=== PATIENT | female | born 1970 | race Caucasian/White ===

== ENCOUNTER 2020-01-03 22:47 | Emergency (ER) | payer OTHER ==
[2020-01-03 23:09] VITALS: BMI 24.4
--- NOTE | 2020-01-03 23:53 | PDOC ---
History of Present Illness - General Chief Complaint: Pain Stated Complaint: PAIN Time Seen by Provider: 01/03/20 23:27 - History of Present Illness Initial Comments: 01/04/20 00:35 49 yo F no PMH presenting with L arm and L leg numbness. Y[place]ut speaking only. Reports that her numbness began acutely around 1400, "feels like they are asleep ", associated with bitemporal headache. Complains that both feet are experiencing this numbness. Also complains of intermittent mild chest pain for the past 4 days. Denies trauma or inciting event, has not happened before. Further denies photophobia/phonophobia, SOB, N/V, fevers/chills. Past History - Past Medical History Allergies/Adverse Reactions: Allergies Allergy/AdvReac Type Severity Reaction Status Date / Time No Known Allergies Allergy Verified 01/03/20 23:09 Home Medications: Ambulatory Orders NK [No Known Home Medication] 01/04/20 COPD: No - Psycho Social/Smoking Cessation Hx Smoking History: Current every day smoker Have you smoked in the past 12 months: Yes Number of Cigarettes Smoked Daily: 6 Information on smoking cessation initiated: No Hx Alcohol Use: No Drug/Substance Use Hx: No Review of Systems - Review of Systems Comments:: 01/04/20 00:59 GENERAL/CONSTITUTIONAL: denies fever, chills, diaphoresis, generalized weakness , malaise, loss of appetite, weight change HEAD, EYES, EARS, NOSE AND THROAT: denies rhinorrhea, nasal congestion, throat pain, throat swelling, difficulty swallowing, mouth swelling, ear pain, eye pain , visual changes NEUROLOGIC: endorses bitemporal headache and L arm/leg/bilateral feet numbness "like her feet are asleep", as well as dizziness. Denies focal weakness unsteady gait, seizure, mental status changes, bladder or bowel incontinence CARDIOVASCULAR: endorses intermittent chest pain, not currently experiencing. Denies syncope, palpitations, irregular heart rate, lightheadedness, peripheral edema RESPIRATORY: denies cough, shortness of breath, dyspnea with exertion, orthopnea , wheezing, stridor, hemoptysis GASTROINTESTINAL: denies abdominal pain, abdominal distension, nausea, vomiting , diarrhea, constipation, melena, hematochezia GENITOURINARY: denies dysuria, frequency, urgency, hesitancy, hematuria, flank pain, genital pain MUSCULOSKELETAL: denies myalgia, arthralgia, joint swelling, back pain, neck pain SKIN: denies rash, itching, pallor HEMATOLOGIC/IMMUNOLOGIC: denies easy bleeding, easy bruising, lymphadenopathy, frequent infections ENDOCRINE: denies unexplained weight gain, unexplained weight loss, heat intolerance, cold intolerance PSYCHIATRIC: denies anxiety, depression, suicidal or homicidal ideation, hallucinations. *Physical Exam - Vital Signs Last Vital Signs Temp Pulse Resp BP Pulse Ox 98.0 F 64 18 132/83 96 01/03/20 23:04 01/03/20 23:23 01/03/20 23:23 01/03/20 23:23 01/03/20 23:23 - Physical Exam 01/04/20 01:00 GENERAL: Awake, alert, and fully oriented, appears uncomfortable. HEAD: Normal with no signs of trauma. EYES: Pupils equal, round and reactive to light, extraocular movements intact, sclera anicteric, conjunctiva clear. No lid lag. EARS, NOSE, THROAT: Ears normal, nares patent, oropharynx clear without exudates. NECK: Normal range of motion, supple without lymphadenopathy, JVD, or masses. LUNGS: Breath sounds equal, clear to auscultation bilaterally. No wheezes, and no crackles. No accessory muscle use. HEART: Regular rate and rhythm, normal S1 and S2 without murmur, rub or gallop. ABDOMEN: Soft, nontender, non-distended, normoactive bowel sounds, negative guarding, negative rebound, no masses. MUSCULOSKELETAL: Normal range of motion at all joints. No bony deformities or tenderness. No CVA tenderness. UPPER EXTREMITIES: 2+ pulses, warm, well-perfused. No cyanosis. No clubbing. Cap refill <2 seconds. No peripheral edema. LOWER EXTREMITIES: 2+ pulses, warm, well-perfused. No calf tenderness. No peripheral edema. NEUROLOGICAL: Cranial nerves II-XII intact. Normal speech. Normal gait. Negative Tinel's. Subjective decreased sensation to light touch throughout entire L arm and L leg, as well as R foot. Point tenderness at insertion of trapezius. PSYCHIATRIC: Cooperative. Good eye contact. Appropriate mood and affect. SKIN: Warm, dry, normal turgor, no rashes or lesions noted. ED Treatment Course - LABORATORY CBC & Chemistry Diagram: 01/04/20 00:30 01/04/20 02:00 - RADIOLOGY Radiology Studies Ordered: Category Date Time Status HEAD CT WITHOUT CONTRAST [CT] Stat CT Scan 01/03/20 23:40 Ordered CHEST X-RAY PORTABLE* [RAD] Stat Radiology 01/03/20 23:42 Ordered Medical Decision Making - Medical Decision Making 01/03/20 23:53 Patient with tightness at insertion of trapezius, bitemporal headache, subjective numbness without a specific distribution. Concern for intracranial pathology vs tension headache. - CT head negative - CBC, CMP, EKG, trop - Ofirmev, fluids, Reglan - reassess - likely dc 01/03/20 23:53 EKG normal sinus at 69 bpm. Repeat EKG sinus bradycardia at 58 bpm. 01/04/20 01:34 Patient reassessed, feels better. Numbness improved, headache improved. Will give some toradol and Robaxin as well. Discharge - Discharge Information Problems reviewed: Yes Clinical Impression/Diagnosis: Headache Disposition: HOME - Follow up/Referral Referrals: [facility] [place] [facility] [place] [Provider Group] ON STAFF,NOT [Primary Care Provider] - - Patient Discharge Instructions Patient Printed Discharge Instructions: DI for Headache Additional Instructions: You were seen for the evaluation of your symptoms. You did well with the treatments and your labs were within normal limits. Please return to the emergency department if you have worsening or new concerning symptoms. Please follow up with the primary medical doctor within 1 week after discharge for follow up care and management. Thank you. - Post Discharge Activity
[2020-01-04] MEDS ORDERED: SODIUM CHLORIDE 0.9% 1000 ML INFUS.BAG IV ONE (00:26)
[2020-01-04] MEDS ORDERED: ACETAMINOPHEN 1000 MG/100 ML VIAL (NON FORMULARY) IVPB ONE (00:26)
[2020-01-04] MEDS ORDERED: METOCLOPRAMIDE HCL INJECTION 10 MG/2 ML VIAL IVPUSH ONE (00:26)
--- NOTE | 2020-01-04 00:35 | PDOC ---
Documentation entered by Carlos Eduardo Mcmillan SCRIBE, acting as scribe for Cnady Sanchez DO. Candy Sanchez DO: This documentation has been prepared by the Hipolito rivera Daniel, SCRIBE, under my direction and personally reviewed by me in its entirety. I confirm that the documentation accurately reflects all work, treatment, procedures, and medical decision making performed by me. Attending Attestation - Resident Resident Name: MinorErickcar - ED Attending Attestation I have performed the following: I have examined & evaluated the patient, The case was reviewed & discussed with the resident, I agree w/resident's findings & plan, Exceptions are as noted - HPI HPI: 01/03/20 23:59 The patient is a 49 year old female with no past medical history here today for evaluation of extremity numbness. The patient reports that she has had left arm and bilateral foot numbness since 2 PM today with associated left sided headache and neck pain. She also notes that she has had an episode of intermittent chest pressure that is a 7/10 in severity and lasts for a few minutes at a time today that has resolved. Patient denies headache, lightheadedness. Denies fever, chills. Denies shortness of breath. Denies nausea, vomiting, diarrhea, abdominal pain. Allergies: NKA - Physicial Exam PE: 01/04/20 00:29 Constitutional: Awake, alert, oriented. No acute distress. Head: Normocephalic. Atraumatic Eyes: PERRL. EOMI. Conjunctivae are not pale. ENT: Mucous membranes are moist and intact. Posterior pharynx without exudates or erythema. Uvula midline. Neck: Supple. Full ROM. No lymphadenopathy. Cardiovascular: Regular rate. Regular rhythm. S1, S2 regular. Distal pulses are 2+ and symmetric. Pulmonary/Chest: No evidence of respiratory distress. Clear to auscultation bilaterally No wheezing, rales or rhonchi. Abdominal: Soft and non-distended. There is no tenderness. No rebound, guarding or rigidity. No organomegaly. No palpable masses. Good bowel sounds. Back: No CVA tenderness. Musculoskeletal: +point tenderness at the insertion of the trapezius into the occiput. No edema. No cyanosis. No clubbing. Full range of motion in all extremities. Nocalf tenderness. Radial/pedal pulses are intact and 2+ bilaterally Skin: Skin is warm and dry. No petechiae. No purpura. Neurological: Alert and oriented to person, place, and time. Cranial nerves II -XII are grossly intact. Normal speech. Strength is grossly symmetric. No sensory deficits. Psychiatric: Good eye contact. Normal interaction, affect and behavior. - Medical Decision Making 01/04/20 00:33 a/p: 49yo female with L posterior occiput pain, L paraspinal pain and paresthesias to LUE and LLE -pt also with west -suspect complex migraine with paraspinal muscle spasms -head ct ordered for paresthesias -neuro intact, sensation intact, no focal deficits, pt with FROM of all extremities -will send labs, tylenol, reglan -will monitor and reassess 01/04/20 00:35 pt also with an episode of cp earlier today will obtain ekg and trop 01/04/20 01:[address] neg 01/04/20 01:34 pt with improvement of symptoms west improved but not gone will add toradol 01/04/20 01:35 cxr clear 01/04/20 02:04 pt labs pending pt signed out to the oncoming ED team pending labs and re-eval Heart Score/ECG Review - ECG Intrepretation Comment:: 01/04/20 00:35 sinus at 69, nl axis, nl interval, no acute st/t wave findings
[2020-01-04] MEDS ORDERED: METOCLOPRAMIDE HCL INJECTION 10 MG/2 ML VIAL ONE (00:42)
[2020-01-04] MEDS ORDERED: ACETAMINOPHEN INJECTION 100 ML IVPB ONE (00:42)
[2020-01-04] MEDS ORDERED: METHOCARBAMOL 500 MG TABLET PO ONE (01:34)
[2020-01-04] MEDS ORDERED: KETOROLAC TROMETHAMINE 30 MG/1 ML VIAL IVPUSH ONE (01:34)
[2020-01-04] MEDS ORDERED: METHOCARBAMOL 500 MG TABLET ONE (01:36)
[2020-01-04] MEDS ORDERED: KETOROLAC TROMETHAMINE 15 MG/ML VIAL ONE (01:37)
[2020-01-04 01:44] LABS: BASO % 0.8 % (0-2.0); EOS % 1.9 % (0-4.5); HEMATOCRIT 44.1 % (32.4-45.2); HEMOGLOBIN 15.4 GM/dL (10.7-15.3); LYMPH % 51.2 % (8-40); MCH 32.7 pg (25.7-33.7); MCHC 34.8 g/dl (32.0-36.0); MONO % 5.4 % (3.8-10.2); NEUT % 40.7 % (42.8-82.8); PLATELET COUNT 269 K/MM3 (134-434); RDW 13.2 % (11.6-15.6); WHITE BLOOD COUNT 6.1 K/mm3 (4.0-10.0)
[2020-01-04 02:05] LABS: INR 1.03 (0.83-1.09); PROTHROMBIN TIME (PATIENT) 12.1 SEC (9.7-13.0)
[2020-01-04 02:08] LABS: ACTIVATED PTT 29.2 SECONDS (25.2-36.5)
[2020-01-04 02:51] LABS: MAGNESIUM 1.9 mg/dL (1.8-2.4); PHOSPHOROUS 3.1 mg/dL (2.5-4.9)
[2020-01-04 02:55] LABS: ALBUMIN 3.3 g/dl (3.4-5.0); ALK PHOS 101 U/L (45-117); ANION GAP 5 MMOL/L (8-16); BILIRUBIN,TOTAL 0.5 mg/dL (0.2-1); BLOOD UREA NITROGEN 7.1 mg/dL (7-18); CALCIUM 8.4 mg/dL (8.5-10.1); CHLORIDE 113 mmol/L (98-107); CO2 25 mmol/L (21-32); CREATININE 0.6 mg/dL (0.55-1.3); GLUCOSE,RANDOM 106 mg/dL (74-106); POTASSIUM 3.9 mmol/L (3.5-5.1); SGOT/AST 15 U/L (15-37); SGPT/ALT 23 U/L (13-61); SODIUM 142 mmol/L (136-145); TOT PROT 6.2 g/dl (6.4-8.2)
--- NOTE | 2020-01-04 03:31 | PDOC ---
*Physical Exam - Vital Signs Last Vital Signs Temp Pulse Resp BP Pulse Ox 98.0 F 64 18 132/83 96 01/03/20 23:04 01/03/20 23:23 01/03/20 23:23 01/03/20 23:23 01/03/20 23:23 - Physical Exam Received sign out from day team Patient is a 49 yo F with no pmhx presenting to the emergency department with bilateral feet numbness with left arm and left leg numbness since 2 pm yesterday. Denies trauma At the time of sign out, the patient had pending labs and requiring re- assessment. ED Treatment Course - LABORATORY CBC & Chemistry Diagram: 01/04/20 00:30 01/04/20 02:00 - ADDITIONAL ORDERS Additional order review: Laboratory Results 01/04/20 01/04/20 01/04/20 02:15 02:00 02:00 PT with INR INR PTT (Actin FS) Sodium 142 Potassium 3.9 Chloride 113 H Carbon Dioxide 25 Anion Gap 5 L BUN 7.1 Creatinine 0.6 Est GFR (CKD-EPI)AfAm 124.92 Est GFR (CKD-EPI)NonAf 107.78 Random Glucose 106 Calcium 8.4 L Phosphorus 3.1 Magnesium 1.9 Total Bilirubin 0.5 AST 15 ALT 23 Alkaline Phosphatase 101 Creatine Kinase 71 Troponin I < 0.02 Total Protein 6.2 L Albumin 3.3 L Serum , Qual Negative 01/04/20 01/04/20 01/04/20 01:35 00:30 00:30 PT with INR 12.10 INR 1.03 PTT (Actin FS) 29.2 Sodium Cancelled Potassium Cancelled Chloride Cancelled Carbon Dioxide Cancelled Anion Gap Cancelled BUN Cancelled Creatinine Cancelled Est GFR (CKD-EPI)AfAm Cancelled Est GFR (CKD-EPI)NonAf Cancelled Random Glucose Cancelled Calcium Cancelled Phosphorus Cancelled Magnesium Cancelled Total Bilirubin Cancelled AST Cancelled ALT Cancelled Alkaline Phosphatase Cancelled Creatine Kinase Cancelled Troponin I Cancelled Total Protein Cancelled Albumin Cancelled Serum , Qual Cancelled 01/04/20 00:30 RBC 4.70 MCV 94.0 MCHC 34.8 RDW 13.2 MPV 11.0 Neutrophils % 40.7 L Lymphocytes % 51.2 H Monocytes % 5.4 Eosinophils % 1.9 Basophils % 0.8 - Medications Given in the ED: ED Medications Discontinued Medications Generic Name Dose Route Start Last Admin Trade Name Emy PRN Reason Stop Dose Admin Acetaminophen 1,000 mg 01/04/20 00:26 01/04/20 01:00 Ofirmev Injection - IVPB 01/04/20 00:27 1,000 mg ONCE ONE Administration Ketorolac Tromethamine 15 mg 01/04/20 01:34 01/04/20 01:41 Toradol Injection - IVPUSH 01/04/20 01:35 15 mg ONCE ONE Administration Methocarbamol 500 mg 01/04/20 01:34 01/04/20 01:41 Robaxin - PO 01/04/20 01:35 500 mg ONCE ONE Administration Metoclopramide HCl 10 mg 01/04/20 00:26 01/04/20 01:00 Reglan Injection - IVPUSH 01/04/20 00:27 10 mg ONCE ONE Administration Sodium Chloride 1,000 ml 01/04/20 00:26 01/04/20 01:00 Normal Saline - IV 01/04/20 00:27 1,000 ml ONCE ONE Administration Medical Decision Making - Medical Decision Making 01/04/20 06:54 Patient was re-assessed. Patient states she feels well and would like to be discharged. The patient has complete resolution of symptoms. Patient to be discharged and given strict return precautions. Discharge - Discharge Information Problems reviewed: Yes Clinical Impression/Diagnosis: Headache Disposition: HOME - Admission No - Follow up/Referral Referrals: ON STAFF,NOT [Primary Care Provider] - [facility] [place] [facility] at [place] [Provider Group] - Patient Discharge Instructions Patient Printed Discharge Instructions: DI for Headache Additional Instructions: You were seen for the evaluation of your symptoms. You did well with the treatments and your labs were within normal limits. Please return to the emergency department if you have worsening or new concerning symptoms. Please follow up with the primary medical doctor within 1 week after discharge for follow up care and management. Thank you. - Post Discharge Activity
[2020-01-04 03:45] VITALS: BP 116/71; PULSE 68; TEMP 99.2
--- NOTE | 2020-01-04 15:08 | EKG ---
Test Reason : Blood Pressure : / mmHG Vent. Rate : 069 BPM Atrial Rate : 069 BPM P-R Int : 132 ms QRS Dur : 076 ms QT Int : 394 ms P-R-T Axes : 051 031 050 degrees QTc Int : 422 ms NORMAL SINUS RHYTHM NORMAL ECG NO PREVIOUS ECGS AVAILABLE Confirmed by SWETHA PATEL MD ([id number]) on 01/04/2020 3:07:40 PM Referred By: Confirmed By:SWETHA PATEL MD
== END 2020-01-04 03:44 | disposition home or self-care (01) ==
LOC: JER 22:47
PROC: 3E033NZ Introduction of Analgesics, Hypnotics, Sedatives into Peripheral Vein, Percutaneous Approach (ICD-10-PCS; principal; 2020-01-03)
PROC: 3E033GC Introduction of Other Therapeutic Substance into Peripheral Vein, Percutaneous Approach (ICD-10-PCS; 2020-01-03)
PROC: 3E0333Z Introduction of Anti-inflammatory into Peripheral Vein, Percutaneous Approach (ICD-10-PCS; 2020-01-03)
DX: R51 Headache (principal)
CPT/HCPCS: 36415; 70450-TC; 71045-TC-FY; 80053; 82550; 83735; 84100; 84484; 84703; 85025; 85610; 85730; 93005; 93010; 99285-25; J0131; J7030